=== PATIENT | male | born 1970 | race Asian ===

== ENCOUNTER → 2023-12-31 12:37 | Outpatient (REF) | payer OTHER, SELFPAY | LOC: HWRAD 12:37 | PROVIDERS: ATTENDING PHYSICIAN Internal Medicine Gastroenterology; FAMILY PHYSICIAN Internal Medicine | DX: C18.9 Malignant neoplasm of colon, unspecified (principal) | CPT/HCPCS: 71260; 74177; Q9967 ==

== ENCOUNTER 2024-10-01 06:21 | Emergency (ER) | payer OTHER, SELFPAY ==
[2024-10-01] VITALS (9 sets, daily range): BP systolic 96–127; BP diastolic 71–95; BMI 29.5
--- NOTE | 2024-10-01 06:28 | ED.GENMED ---
History of Present Illness
General
Chief Complaint: Abdominal Pain
Source: patient and ambulance crew
Exam Limitations: none
Time Seen by Provider: 10/01/24 06:27
Nursing documentation reviewed up to this point in time: agreed with
History of Present Illness
History of Present Illness:
53-year-old male with a past medical history of hypertension and colon cancer who presents to the emergency department via EMS from home for evaluation of shortness of breath and right chest/abdominal pain. Patient reports that yesterday morning
around 8 AM he started with pain in the right lower chest/upper abdomen and it was consistent all day; he says around 8 or 9 PM yesterday he started with shortness of breath and by this morning he says he felt like 'I could not breathe.' He called
EMS to bring him to the hospital. Per EMS on arrival he was hypoxic to 87% requiring supplemental oxygen. He was transported to the emergency room. He reports sharp pain right lower chest/upper abdomen does not radiate. No clear triggering or
relieving factors noted. Associated with shortness of breath. Denies any coughing. Denies any fever or chills. He denies any nausea, vomiting, diarrhea or constipation�last bowel movement was this morning. He denies any swelling or pain in the
legs. He says he has never had similar symptoms in the past.
Past History
Past History
ED Past Medical History: HTN and Other (Rectal polyp that he has been told is Cancer)
ED Past Surgical History: Other (Lasik)
Social History
Tobacco: 2nd hand smoke exposure
Alcohol: Occasional
Personal:
Living: with family
Review of Systems
Review of Systems
All Other Systems: ROS reviewed and negative except as documented in HPI and ROS
Constitutional: Denies fever or chills
Respiratory: Reports trouble breathing; Denies cough
Cardiac: Reports chest pain; Denies palpitations
ABD/GI: Reports abdominal pain; Denies nausea, vomiting, diarrhea or constipated
: Denies flank pain
Musculoskeletal: Denies neck pain or back pain
Neurological: Denies dizzy or headache
Phy Exam
Physical Exam
Physical Exam:
General: Awake, alert,, mild respiratory distress
Head: Normocephalic, atraumatic
Eyes: Conjunctiva normal, sclera anicteric
Throat: Airway intact, handling secretions
Neck: Trachea midline, no JVD
Lungs: Mild respiratory distress with tachypnea and hypoxia; breath sounds are diminished at the lung bases but no focal rales, rhonchi, or wheezing appreciated
Heart: Regular rate and rhythm, no murmurs, gallops, or rubs appreciated
Abd: Soft, mildly distended, tender in the right upper abdomen with no peritoneal signs or masses appreciated
Neuro: No gross deficits
Skin: no rash in area of concern
Extremities: No edema in extremities, equal pulses in all extremities
Scores
Heart Failure Risk
Heart Failure Risk Score: Not Applicable
Heart Score for Chest Pain Patients
STEMI patient?: Not applicable
Withdrawal Assessment of Alcohol
Withdrawal Assessment Completed?: Not applicable
Course
Orders/Labs/Results
Orders:
Orders
10/01/24 06:23
Electrocardiogram (*1) Urgent
Reason for Study: Other
Other Reason for Exam: Respiratory Distress
Cardiac Monitoring- Treatment ONCE
EKG- Treatment ONCE
IV Insert/Care/Rem.- Treatment PRN
O2 Therapy [RESP] Urgent
Titrate/Wean O2 to maintain O2 sat greater than (%): 93
Special Instructions: TO MAINTAIN CONTINUOUS O2 SATS >/= 93%
Pulse Ox/cont/shift [RESP] Urgent
Quantity: 1
Special Instructions: continuous pulse ox
10/01/24 06:27
CR Chest Portable - 1 View Urgent
Comment:
Reason For Exam: sob
Reason Study Needs to be Portable: Unable to Transport
10/01/24 06:35
Basic Metabolic Panel Urgent
Complete Blood Count/With Diff Urgent
NT-proBNP Urgent
Troponin I Urgent
10/01/24 06:39
CT Pe/abd/pel W Urgent
Comment: h/o colon ca
Reason For Exam: hypoxia and SOB, right chest/upper abd pain + TTP
10/01/24 07:21
Comprehensive Metabolic Panel Urgent
Lipase Urgent
Comment: ADD ON
10/01/24 08:14
Morphine Sulfate 4 mg IV NOW STA
Ondansetron Injectable [Zofran] 4 mg IV NOW STA
10/01/24 08:17
Heparin Pf [Heparin Lock Flush] 500 unit .ROUTE .[facility]
10/01/24 09:19
Add On- LAB Urgent
Tests Added?: lipase
US Abdomen Complete/Upper Urgent
Comment:
Reason For Exam: RUQ pain, abnormal LFTs
10/01/24 11:09
HYDROmorphone [Dilaudid] 0.5 mg IV NOW STA
Abnormal Lab Results
10/01/24 10/01/24
06:35 07:21
WBC 15.8 H 10^3/uL
(4.8-10.8)
RBC 3.92 L 10^6/uL
(4.70-6.10)
Hgb 11.3 L g/dL
(13.0-18.0)
Hct 35.5 L %
(39.0-52.0)
MCHC 31.8 L g/dL
(33.0-37.0)
RDW 20.6 H %
(11.5-14.5)
Abs Immat Gran (auto) 0.1 H 10^3/uL
(0-0.05)
Absolute Neuts (auto) 13.4 H 10^3/uL
(1.4-6.5)
Absolute Monos (auto) 1.1 H 10^3/uL
(0.1-0.6)
Immature Gran % 0.7 H %
(0-0.5)
Neutrophils % 84.5 H %
(42.2-75.2)
Lymphocytes % 7.7 L %
(20.5-51.1)
Chloride 108 H mmol/L
(98-107)
Creatinine 0.6 L mg/dL
(0.7-1.3)
Glucose 109 H mg/dl 111 H mg/dl
(70-99) (70-99)
Calcium 7.8 L mg/dl 7.6 L mg/dl
(8.4-10.2) (8.4-10.2)
Total Bilirubin 4.0 H mg/dl
(0.2-1.3)
AST 187 H U/L
(17-59)
Albumin 2.6 L g/dl
(3.5-5.0)
10/01/24 06:35
10/01/24 07:21
Vital Signs
Initial and Last Documented VS:
Initial Vital Signs
Temp Pulse Resp BP Pulse Ox
37.4 C 83 45 127/83 99
10/01/24 06:24 10/01/24 06:24 10/01/24 06:24 10/01/24 06:24 10/01/24 06:24
Last Documented Vital Signs
Temp Pulse Resp BP Pulse Ox
37.4 C 79 26 115/88 95
10/01/24 06:24 10/01/24 12:54 10/01/24 06:30 10/01/24 13:00 10/01/24 13:19
MDM/Problems Addressed
Differential Diagnosis Includes:
Shortness of breath: Pneumonia, pulmonary embolism, pleural effusion, pulmonary edema, pneumothorax
Right lower chest/upper abdominal pain: Pneumonia, pulmonary embolism, pleural effusion, pneumothorax, cholelithiasis/cholecystitis, bowel obstruction, kidney stone
MDM/Problems Addressed:
53-year-old male presents for evaluation of shortness of breath and right lower chest/upper abdominal pain. Pain started first yesterday morning which progressed to dyspnea, this morning was in respiratory distress which prompted EMS call. EMS
found him hypoxic and placed him on CPAP on the way to the hospital. On arrival here off of CPAP he was tachypneic and hypoxic�he was placed on supplemental oxygen with improvement in respiratory rate, oxygenation and normalization and work of
breathing. His physical exam is as above. Plan to obtain stat chest x-ray and EKG. IV placed labs sent off including a CBC and a CMP, troponin, proBNP. Check lipase. Plan for CT of the abdomen pelvis with low threshold for CT chest if x-ray of
the chest is nondiagnostic.
Chest x-ray shows small right pleural effusion but no other acute disease. Will send for CT PE as well as CT abdomen pelvis.
Labs reviewed: CBC shows leukocytosis to 15.8. Stable anemia. CMP notable for elevated T. bili at 4.0 with AST of 187. proBNP normal, troponin negative. CT chest/abdomen/pelvis shows no PE, small right pleural effusion. He does have progression
of liver metastasis but no other acute abnormalities noted. Given abnormal transaminases and bilirubin concern for biliary obstruction related to malignancy. Check an ultrasound to evaluate CBD. His oncologist is at [facility]. Will
discuss with oncologist there regarding transfer as I do think the patient requires admission.
Discussed with oncology team at [facility] who recommended transfer for care through [facility]. Patient is agreeable to this we will arrange for transfer.
Discussed with transfer team at [facility]--patient accepted for transfer by Dr. Diamond Haley. Will monitor pending transport.
Chronic conditions affecting care:
Colon cancer
*Radiology
Radiology exam reviewed: preliminary read by ED provider and radiology read reviewed
*Pulse Oximetry
Patient hypoxic: yes
*EKG
Interpreted by ED Provider?: Yes
Heart Rate: 84
Rate: normal
Rhythm: sinus
[place]: normal axis
Interval: normal interval
QRS Pattern: normal QRS
Ischemia: no ischemia
*Critical Care Note
Total Time (30-74mins, 75-104mins- exclusive of procedures): Not Applicable
comment:
Critical care statement: A total of ___ minutes of critical care time was provided for this patient. This includes management of unstable vital signs, evaluation of the patient at bedside, frequent reassessment, discussion with
consultants/hospitalist, and review of pertinent medical records. This time was separate from time utilized to perform any aforementioned documented procedures
Data Reviewed
Source: patient, records and ambulance crew
Patient Management
Discussion with other providers: Hospitalist (Discussed with hospitalist)
Escalation/DeEscalation of care consider admission/obs:
Admission indicated
ED Attending Note
-
Portions of this chart may have been created with voice recognition software.� Occasional wrong word or��sound alike� substitutions may have occurred due to the inherent limitations of voice recognition software.
Discharge Plan
Departure
Patient Disposition: Acute Care Hospital
Date of Disposition: 10/01/24
Time of Disposition: 11:21
Discharge Problem:
Hypoxic respiratory failure, Pleural effusion, Metastatic cancer, Abdominal pain
Prescriptions:
No Action
No Current Medications
0
Hospital Transfer
Other hospital: [facility]
I certify that the patient requires transfer: Yes
Discussed case with accepting physician: Dr. Kaylin Haley
Reason for transfer: continuity of care PCP
Interventions
Interventions:
*Risk Screen - Suicide Last Done: 10/01/24 06:24
*General Assessment Last Done: 10/01/24 06:24
*Neglect/Abuse Screening Last Done: 10/01/24 06:24
*ED- Fall Risk Assessment Last Done: 10/01/24 06:24
*ED COVID-19 Vaccine History Last Done: 10/01/24 06:24
*Nursing Disposition Last Done: 10/01/24 13:22
[facility] Assessment Last Done: 10/01/24 07:13
ED- Cardiac Assessment Last Done: 10/01/24 07:10
ED- Pulmonary Assessment Last Done: 10/01/24 07:10
Discharge Date and Time
Discharge Date/Time: 10/01/24 13:25
Print Language: CROATIAN
[2024-10-01 06:45] LABS: % Basophils 0.3 % (0-2); % Eosinophils 0.2 % (0-6); % Immature Granulocytes 0.7 % (0-0.5); % Lymphocytes 7.7 % (20.5-51.1); % Monocytes 6.6 % (1.7-9.3); % Neutrophils 84.5 % (42.2-75.2); Absolute Basophils 0.1 10^3/uL (0-0.2); Absolute Immature Granulocytes 0.1 10^3/uL (0-0.05); Absolute Lymphocytes 1.2 10^3/uL (1.2-3.4); Absolute Monocytes 1.1 10^3/uL (0.1-0.6); Absolute Neutrophils 13.4 10^3/uL (1.4-6.5); Hematocrit 35.5 % (39.0-52.0); Hemoglobin 11.3 g/dL (13.0-18.0); Mean Corp Hgb Conc. 31.8 g/dL (33.0-37.0); Mean Corpuscular Hgb 28.8 pg (27.0-31.0); Mean Corpuscular Volume 90.6 fL (80.0-94.0); Mean Platelet Volume 9.4 fL (7.4-10.4); Nucleated Red Blood Cells % 0 % (-); Platelet Count 163 10^3/uL (130-400); Red Blood Cell Count 3.92 10^6/uL (4.70-6.10); Red Cell Dist. Width 20.6 % (11.5-14.5); White Blood Cell Count 15.8 10^3/uL (4.8-10.8)
[2024-10-01 06:59] LABS: Blood Urea Nitrogen 12 mg/dl (9-20); Calcium 7.8 mg/dl (8.4-10.2); Carbon Dioxide 26 mmol/L (22-30); Chloride 107 mmol/L (98-107); Estimated Creatinine Clearance 100 ml/min; Glucose 109 mg/dl (70-99); Sodium 136 mmol/L (135-145); eGFR > 60.00
[2024-10-01 07:06] LABS: NT-proBNP 290 pg/ml; Troponin I < 0.012 ng/ml
[2024-10-01 07:51] LABS: ALT (SGPT) 35 U/L (0-50); AST (SGOT) 187 U/L (17-59); Albumin 2.6 g/dl (3.5-5.0); Alkaline Phosphatase 125 U/L (38-126); Blood Urea Nitrogen 12 mg/dl (9-20); Calcium 7.6 mg/dl (8.4-10.2); Carbon Dioxide 24 mmol/L (22-30); Chloride 108 mmol/L (98-107); Estimated Creatinine Clearance > 125 ml/min; Glucose 111 mg/dl (70-99); Potassium 4.5 mmol/L (3.5-5.1); Sodium 135 mmol/L (135-145); Total Protein 7.9 g/dl (6.3-8.2); eGFR > 60.00
[2024-10-01] MEDS: ZOFRAN 4 MG IV (08:24)
[2024-10-01] MEDS: MORPHINE SULFATE 4 MG IV (08:24)
[2024-10-01 10:13] LABS: Lipase 53 U/L (23-300)
[2024-10-01] MEDS: DILAUDID 0.5 MG IV (11:15)
--- NOTE | 2024-10-01 12:37 | EDRN ---
Call to [facility] to give report- they will call back.
[phone] Room 110B
--- NOTE | 2024-10-01 13:00 | EDRN ---
Report to Randal at [facility]
== END 2024-10-01 13:25 | disposition short-term general hospital (02) ==
LOC: EMR 06:21
PROVIDERS: EMERGENCY PHYSICIAN Emergency Medicine
DX: J96.91 Respiratory failure, unspecified with hypoxia (principal); C18.9 Malignant neoplasm of colon, unspecified; C78.7 Secondary malignant neoplasm of liver and intrahepatic bile duct; R14.0 Abdominal distension (gaseous); R10.11 Right upper quadrant pain; J90 Pleural effusion, not elsewhere classified; R06.82 Tachypnea, not elsewhere classified; I10 Essential (primary) hypertension; Z77.22 Contact with and (suspected) exposure to environmental tobacco smoke (acute) (chronic); Z86.0100 Personal history of colon polyps, unspecified
CPT/HCPCS: 99291; 96374; 96375 ×2; 71045; 71275; 74177; 76700; 80048; 80053; 83690; 83880; 84484; 85025; 93005; Q9967